=== PATIENT | male | born 1955 | race Native Hawaiian/Other Pacific Islander ===

== ENCOUNTER 2017-06-04 06:46 | Day surgery (SDC) | payer BC ==
[2017-06-03 07:43] VITALS: BMI 25.6
--- NOTE | 2017-06-04 02:41 | HP ---
REASON FOR ADMISSION: Left heart cath, possible angioplasty, unstable angina. 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 Most recently, he has a stress test that shows abnormal, so the patient is scheduled for elective cardiac catheterization, possible angioplasty. The patient has multiple episodes of chest pain also as well. PAST MEDICAL HISTORY: Past history significant for coronary artery disease, hypertension, hyperlipidemia. PREVIOUS CARDIAC WORKUP: As follows; the patient had a stress test on 05/15/2017 that shows ejection fraction 65%, inferior apical ischemia, history of cardiac cath and angioplasty of circumflex OM1 and RPDA with drug-eluting stent dated 09/08/2012. At that time, the patient has plain balloon angioplasty of ramus intermedius on 09/08/2012. The patient also had stress test on 09/2014. Following that, the patient had cath done on 10/25/2014 that shows patent stent. Repeat stress test on 07/2015 was negative. Repeat stress test at this time 05/13/2017 is abnormal. Past history is also significant for hypertension and hyperlipidemia. SOCIAL HISTORY: Denies any smoking. Denies any history of alcohol abuse. CURRENT MEDICATIONS: The patient is taking amlodipine 5 mg daily, aspirin 81 mg daily, potassium chloride 20 mEq, metoprolol tartarate 100 mg daily, losartan 50 mg daily, clopidogrel 75 mg daily, atorvastatin 40 mg daily. REVIEW OF SYSTEMS: As per HPI. ALLERGIES: NO KNOWN DRUG ALLERGIES. PHYSICAL EXAMINATION VITAL SIGNS: Height of the patient is 5 feet 5 inches, weight of the patient is 152 pounds, body mass index 26 kg/m2, blood pressure 135/80, heart rate 65. HEENT: PERRLA intact. NECK: Supple. No carotid bruits, JVD or thyromegaly. CHEST: Clear to auscultation. HEART: S1 and S2 regular. ABDOMEN: Soft. EXTREMITIES: Clubbing and cyanosis negative. IMPRESSION: Abnormal stress test dated 05/15/2017 showing inferior apical ischemia, history of coronary artery disease, history of stent of circumflex obtuse marginal 1 and right posterior descending artery with drug-eluting stent dated 09/08/2012 and plain balloon angioplasty of ramus intermedius 09/08/2012. Followup stress test shows inferior wall ischemia dated 10/06/2014. Following this, the patient had a cardiac catheterization on 10/25/2014 that shows patent stent. Then, repeat stress test in 07/2015 was negative. Most recent stress test on 05/13/2016 is abnormal, suggestive of inferior apical ischemia, hypertension, hyperlipidemia. RECOMMENDATION: Cardiac catheterization. Further recommendation after the cardiac catheterization. We will follow with you. Possible unstable angina, the patient has multiple episode of chest pains over a period of 2 weeks. The patient was going to [place] and came back because of chest pain. I will do the cardiac catheterization. Further recommendation after the cardiac catheterization. Thank you for providing us the opportunity in taking care of Suero. Palma Seaman MD
[2017-06-04 07:45] LABS: BASO # 0.01 K/mm3 (0.0-2.0); BASO % 0.2 % (0.0-3.0); EOS # 0.1 (0.0-0.7); EOS % 1.7 % (1.5-5.0); GRAN # 3.52 (1.4-6.5); GRAN % 54.3 % (50.0-68.0); LYMPH # 2.1 (1.2-3.4); LYMPH % 32.1 % (22.0-35.0); MEAN CELL VOLUME 91.2 fl (80.0-105.0); MEAN CORPUSCULAR HEMOGLOBIN 29.4 pg (25.0-35.0); MEAN CORPUSCULAR HGB CONC 32.3 g/dl (31.0-37.0); MEAN PLATELET VOLUME 11.1 fl (7.0-11.0); MONO # 0.8 (0.1-0.6); MONO % 11.7 % (1.0-6.0); RBC 5.1 10^6/uL (3.5-6.1); RED CELL DISTRIBUTION WIDTH 13.5 % (11.5-14.5); WHITE BLOOD COUNT 6.5 10^3/ul (4.5-11.0)
[2017-06-04 07:53] LABS: BLOOD UREA NITROGEN 14 mg/dL (7-21); CALCIUM 9.4 mg/dL (8.4-10.5); GFR AFRICAN-AMERICAN > 60; GFR NON-AFRICAN AMERICAN > 60; HDL CHOLESTEROL 44 mg/dL (29-60)
[2017-06-04 07:54] LABS: INR 1.08 (0.93-1.08); PARTIAL THROMBOPLASTIN TIME 33.7 Seconds (25.1-36.5); PROTHROMBIN TIME 12.4 SECONDS (9.4-12.5)
[2017-06-04 08:06] LABS: LDL CHOLESTEROL 50 mg/dL (0-129)
[2017-06-04] MEDS ORDERED: Iodixanol 320 MG/ML 200 ML BOTTLE IV ONE (08:56)
[2017-06-04] MEDS ORDERED: Phenylephrine 10 mg/ml Inj ONE (08:56)
[2017-06-04] MEDS ORDERED: Iohexol 350mgl/ml 50 ML ONE (08:56)
[2017-06-04] MEDS ORDERED: Lidocaine 2% Inj (20ml) ONE (08:56)
[2017-06-04] MEDS ORDERED: HEPARIN SODIUM/NS 2,000 ML IV ONE (08:57)
[2017-06-04] MEDS ORDERED: Nitroglycerin 50mg in D5W 50 MG/250 ML BOTTLE IV ONE (09:01)
[2017-06-04] MEDS ORDERED: Midazolam 2 MG/2 ML VIAL ONE ×2 (09:19→09:32)
[2017-06-04] MEDS ORDERED: Bacitracin 500 Units/gm Oint Foilpak UD TOP ONE (10:13)
[2017-06-04] MEDS ORDERED: Sodium Chloride 0.9% 1,000 ML IV SCH (10:15)
[2017-06-04 10:26] VITALS: RESP 20; TEMP 98.1
[2017-06-04 11:02] VITALS: O2SAT 100
[2017-06-04 12:33] VITALS: BP 113/72; PULSE 44
[2017-06-04] MEDS ORDERED: Bacitracin 500 Units/gm Oint Foilpak UD ONE (13:34)
--- NOTE | 2017-06-04 17:54 | CARD ---
APPROVED REPORT EKG Measurement Heart [id number] <Conclusion> Marked sinus bradycardia Early repolarization Abnormal ECG
--- NOTE | 2017-06-04 19:05 | CARD ---
APPROVED REPORT Procedure(s) performed: Left Heart Catheterization HISTORY The patient is a 62 year-old male with a history of : most recent EF: 61%. (EF Method: RADIONUCLIDE), previous diagnostic cath, previous PCI (The PCI date was 09/08/2012), hypertension , dyslipidemia , Recurrent Angina and abnormal stress test Inferior Apical ischemia. INDICATION The indication(s) include : positive stress test. CASE TECHNIQUE The patient was brought electively to the Cardiac Catheterization Laboratory in a fasting state and was prepped and draped in a sterile manner. The left wrist was infiltrated with 2% Lidocaine subcutaneous anesthesia. A 6FR [employer]IT sheath was inserted into the left radial artery without difficulty. Coronary angiography was performed using coronary diagnostic catheters. The left coronary system was accessed and visualized with a Diagnostic ,5 Fr JL 4 catheter. The right coronary system was accessed and visualized with a Diagnostic .5 Fr JR 4 catheter. The left ventricle was accessed and visualized with a 5 Fr Pigtail 145 (Angled) catheter. Left ventricular/Aortic Valve gradient assessed on pullback. Closure device was deployed with a Fr TR Band (Regular) without any complications. Vessel Analysis The patient's coronary anatomy is right dominant. The left main coronary artery is a medium size vessel with intimal irregularities and without significant stenosis. The left main bifurcates to the left anterior descending and circumflex. The left anterior descending artery is a medium size vessel with intimal irregularities and without significant stenosis. The first diagonal branch is a medium size vessel with intimal irregularities and without significant stenosis. The circumflex artery is a medium size vessel with intimal irregularities and without significant stenosis. patent stent in mid Cx and OM! The first obtuse marginal branch is a large size vessel with intimal irregularities and without significant stenosis. Patent stent in OM1 continued from Cx The ramus intermedius artery is a small size vessel with intimal irregularities and without significant stenosis. Patent POBA site The right coronary artery is a large size vessel with diffuse calcification noted throughout this vessel and without significant stenosis. The right posterior descending artery is a large size vessel with diffuse calcification noted throughout this vessel and without significant stenosis. Patent Stent In Mid R PDA The right posterolateral branch is a small size vessel with intimal irregularities and without significant stenosis. Left Ventricle The left ventricle is normal in size with normal contractility. There was no cardiomyopathy. The left ventricular ejection fraction is estimated to be 65%. The left ventricular end diastolic pressure is 6-8 mmHg. There was no gradient across the aortic valve upon pullback. Conclusion Non obstructive CAD Patent Stent in R PDA/ CX/OM1 ppatent POBA Site in Ramus intermedius Preserved LV Fx. EF-65%, EDP-6-8 Recommendations Aggressive Medical TherapyCardiac Risk Reduction Program Consider DC Plavix continue Baby ASA indefinately CC; Dr. Suero.
== END 2017-06-04 15:00 | disposition home or self-care (01) ==
LOC: CATH 06:46
PROVIDERS: ATTEND Internal Medicine Cardiovascular Disease
DX: I25.10 Atherosclerotic heart disease of native coronary artery without angina pectoris (principal); E78.5 Hyperlipidemia, unspecified; I10 Essential (primary) hypertension; Z95.5 Presence of coronary angioplasty implant and graft
CPT/HCPCS: 36415; 80048; 80061; 81241; 85025; 85610; 85730; 86850; 86900; 93005; 93458; 99152; C1887 ×2; J1644 ×2; J2250; J3010; J7030; J7040